=== PATIENT | female | born 1990 | race Caucasian/White ===

== ENCOUNTER 2018-05-02 07:02 | Emergency (ER) | payer OTHER ==
[2018-05-02 07:20] VITALS: BP 119/71; PULSE 89; TEMP 98.5; BMI 34.4
--- NOTE | 2018-05-02 08:52 | PDOC ---
History of Present Illness - General Chief Complaint: Vaginal Bleeding Stated Complaint: 11 WEEK /BLEEDING Time Seen by Provider: 05/02/18 08:20 History Source: Patient Exam Limitations: No Limitations - History of Present Illness Initial Comments: 05/02/18 08:44 27 yo F A3 11 weeks GA LMP 02/14/2018 with a history of sickle cell trait presents to the emergency department with vaginal bleeding that began at 2:30 am with the passing of "large blood clots" while in the ED. Per the patient, she was spotting over the last 3 days described as droplets. She was evaluated by her OBGYN physician Dr. Galo who performed an ultrasound yesterday that was reassuring. She states the heavy vaginal bleeding was painless. Currently, she has no symptomatic complaint. She miscarried before the 5 week gestational age in previous pregnancies with the most recent one 2 years ago. Recently, she was diagnosed with BV treated with metronidazole and recently treated for a yeast infection. Denies the following: trauma, fever, chills, nausea, vomiting, ears/nose/throat pain, headaches, chest pain, SOB, abdominal pain, dysuria, hematuria, diarrhea, hematochezia, and leg pain/swelling. Shx: None Meds: vitamins Allergies: NKDA Social: Denies tobacco, alcohol, and substance abuse. Past History - Past Medical History Allergies/Adverse Reactions: Allergies Allergy/AdvReac Type Severity Reaction Status Date / Time No Known Drug Allergies Allergy Verified 05/02/18 07:13 Home Medications: Ambulatory Orders NK [No Known Home Medication] 09/15/15 Anemia: No Asthma: No Cancer: No Cardiac Disorders: No CVA: No COPD: No CHF: No Dementia: No Diabetes: No GI Disorders: No Disorders: No HTN: No Hypercholesterolemia: No Liver Disease: No Seizures: No Thyroid Disease: No - Reproductive History (#): 1 Para: 0 - Immunization History Immunization Up to Date: Yes - Suicide/Smoking/Psychosocial Hx Smoking Status: No Smoking History: Never smoked Number of Cigarettes Smoked Daily: 0 Information on smoking cessation initiated: No Hx Alcohol Use: No Drug/Substance Use Hx: No Substance Use Type: None Hx Substance Use Treatment: No Review of Systems - Review of Systems Able to Perform ROS?: Yes Is the patient limited Slovak proficient: No Constitutional: No: Chills, Diaphoresis, Fever, Weakness HEENTM: No: Eye Pain, Recent change in vision, Ear Pain, Nose Pain, Throat Pain , Mouth Pain Respiratory: No: Cough, Shortness of Breath, SOB with Exertion, Hemoptysis Cardiac (ROS): No: Chest Pain, Lightheadedness, Palpitations, Syncope, Chest Tightness ABD/GI: No: Constipated, Diarrhea, Nausea, Poor Appetite, Poor Fluid Intake, Rectal Bleeding, Vomiting, Indigestion, Abdominal cramping, Tarry Stools : No: Burning, Dysuria, Flank Pain, Hematuria, Urgency Musculoskeletal: No: Back Pain, Gout, Joint Pain, Neck Pain Integumentary: No: Bruising, Erythema, Flushing, Lesions, Pruritus, Rash Neurological: No: Headache, Numbness, Tingling, Tremors, Ataxia, Dizziness Psychiatric: No: Change in Appetite Endocrine: No: Unexplained Weight Gain Hematologic/Lymphatic: No: Anemia *Physical Exam - Vital Signs Last Vital Signs Temp Pulse Resp BP Pulse Ox 98.5 F 89 15 119/71 100 05/02/18 07:13 05/02/18 07:13 05/02/18 07:13 05/02/18 07:13 05/02/18 07:13 - Physical Exam General Appearance: Yes: Nourished, Appropriately Dressed. No: Apparent Distress HEENT: positive: EOMI, LEONEL, Normal Voice, Symmetrical, Pharynx Normal, Hearing Grossly Normal. negative: Pale Conjunctivae, Scleral Icterus (R), Scleral Icterus (L), Muffled/Hoarse voice, Pharyngeal Erythema, Tonsillar Exudate, Tonsillar Erythema, Nasal Congestion, Rhinorrhea, Sinus Tenderness, Excessive drooling Neck: positive: Trachea midline. negative: Tender, Lymphadenopathy (R), Lymphadenopathy (L), Tender lateral, Tender midline Respiratory/Chest: positive: Lungs Clear, Normal Breath Sounds. negative: Chest Tender, Respiratory Distress, Accessory Muscle Use, Crackles, Rales, Rhonchi, Stridor, Wheezing, Hyperresonant, Dullness Cardiovascular: positive: Regular Rhythm, Regular Rate, S1, S2. negative: Systolic Murmur Female Pelvic Exam: positive: vaginal bleeding, other (cervical os open with red blood in the vault.). negative: CMT Gastrointestinal/Abdominal: positive: Normal Bowel Sounds, Flat, Soft. negative : Tender, Distended, Guarding, Rebound, Tenderness, Hernia Lymphatic: negative: Adenopathy Musculoskeletal: positive: Normal Inspection. negative: CVA Tenderness, Vertebral Tenderness Extremity: positive: Normal Capillary Refill, Normal Inspection, Normal Range of Motion. negative: Tender, Swelling, Calf Tenderness Integumentary: positive: Normal Color, Dry, Warm Neurologic: positive: sound editor II-XII NML intact, Fully Oriented, Alert, Normal Mood/ Affect, Normal Response, Motor Strength 5/5. negative: EOM Palsy, Facial Droop , Sensory Deficit Moderate Sedation - Procedure Monitoring Vital Signs: Procedure Monitoring Vital Signs Temperature 98.5 F 05/02/18 07:13 Pulse Rate 89 05/02/18 07:13 Respiratory Rate 15 05/02/18 07:13 Blood Pressure 119/71 05/02/18 07:13 O2 Sat by Pulse Oximetry (%) 100 05/02/18 07:13 ED Treatment Course - LABORATORY CBC & Chemistry Diagram: 05/02/18 09:25 05/02/18 09:25 Medical Decision Making - Medical Decision Making 05/02/18 09:31 27 yo F A3 11 weeks GA LMP 02/14/2018 with a history of sickle cell trait presents to the emergency department with vaginal bleeding that began at 2:30 am with the passing of "large blood clots" while in the ED. Initial vitals: Initial Vital Signs Temp Pulse Resp BP Pulse Ox 98.5 F 89 15 119/71 100 05/02/18 07:13 05/02/18 07:13 05/02/18 07:13 05/02/18 07:13 05/02/18 07:13 Work up: ddx: ectopic vs inevitable vs threatened vs complete vs incomplete . Denies seeing products of conception. Given rhogam last month by Dr. Galo. will get cbc, cmp, type and screen, ua, urine culture, urine GC, and tvus. Laboratory Tests 05/02/18 05/02/18 05/02/18 09:25 09:25 09:25 WBC 10.3 H RBC 4.57 Hgb 12.5 Hct 36.7 MCV 80.3 MCH 27.3 MCHC 34.1 RDW 16.0 H Plt Count 229 MPV 8.1 Absolute Neuts (auto) 8.5 H Neutrophils % 82.0 D Lymphocytes % 10.4 D Monocytes % 6.8 Eosinophils % 0.5 Basophils % 0.3 Nucleated RBC % 0 Sodium 137 Potassium 4.1 Chloride 105 Carbon Dioxide 23 Anion Gap 10 BUN 8 Creatinine 0.6 Creat Clearance w eGFR > 60 Random Glucose 88 Calcium 8.6 Total Bilirubin 0.3 AST 9 L ALT 18 Alkaline Phosphatase 57 Total Protein 7.2 Albumin 3.6 Beta HCG, Quant 32196.1 Urine Color Urine Appearance Urine pH Ur Specific Era Urine Protein Urine Glucose (UA) Urine Ketones Urine Blood Urine Nitrite Urine Bilirubin Urine Urobilinogen Ur Leukocyte Esterase Urine WBC (Auto) Urine RBC (Auto) Ur Epithelial Cells Urine Mucus Blood Type A NEGATIVE Antibody Screen Positive Antibody Identification D Antigen Identification No Result Required. Unit Expiration Date [id number] 05/02/18 09:40 WBC RBC Hgb Hct MCV MCH MCHC RDW Plt Count MPV Absolute Neuts (auto) Neutrophils % Lymphocytes % Monocytes % Eosinophils % Basophils % Nucleated RBC % Sodium Potassium Chloride Carbon Dioxide Anion Gap BUN Creatinine Creat Clearance w eGFR Random Glucose Calcium Total Bilirubin AST ALT Alkaline Phosphatase Total Protein Albumin Beta HCG, Quant Urine Color Ltyellow Urine Appearance Clear Urine pH 5.0 Ur Specific Era 1.014 Urine Protein Negative Urine Glucose (UA) Negative Urine Ketones Negative Urine Blood 3+ H Urine Nitrite Negative Urine Bilirubin Negative Urine Urobilinogen Negative Ur Leukocyte Esterase Negative Urine WBC (Auto) 5 Urine RBC (Auto) 120 Ur Epithelial Cells Rare Urine Mucus Rare Blood Type Antibody Screen Antibody Identification Antigen Identification Unit Expiration Date patient had a positive antibody on labs. the rest of the labs were within normal limits. TVUS showed live intrauterine of 11 weeks 1 day with small subchorionic bleed. patient is hemodynamically stable. Dr. Galo was reached and he stated no further work up required and to have the patient follow up with him. I instructed the patient to see Dr. Galo today for follow up on cell free DNA to assess if further treatment is required. patient agreed to the plan and stated she would see him after discharge. patient was discharged without symptoms and was able to ambulate on her own volition. Dispo: Discharge *DC/Admit/Observation/Transfer Diagnosis at time of Disposition: Vaginal bleeding, First trimester - Discharge Dispostion Disposition: HOME Decision to Admit order: No - Referrals Referrals: Azucena Vitale [Primary Care Provider] - Hunter Covarrubias MD [Staff Physician] - - Patient Instructions Printed Discharge Instructions: DI for -- Discomforts and Remedies, DI for Vaginal Bleeding During , DI for Abdominal Pain -- Early Additional Instructions: You were seen in the emergency department for the evaluation of your vaginal bleeding. your ultrasound showed subchorionic bleeding with a reassuring heart rate. you were given 300 micrograms of rhogam. Please follow up with your OBGYN physician today for possible testing of cell DNA to determine immunological risk. please return to the emergency department if you have worsening symptoms or new concerning symptoms such as increased bleeding, feelings of passing out, and SOB and chest pain. thank you. - Post Discharge Activity Forms/Work/School Notes: Back to Work
[2018-05-02 09:42] LABS: BASO % 0.3 % (0-2.0); EOS % 0.5 % (0-4.5); HEMATOCRIT 36.7 % (32.4-45.2); HEMOGLOBIN 12.5 GM/dL (10.7-15.3); LYMPH % 10.4 % (8-40); MCH 27.3 pg (25.7-33.7); MCHC 34.1 g/dl (32.0-36.0); MEAN CELL VOLUME 80.3 fl (80-96); MEAN PLT VOLUME 8.1 fl (7.5-11.1); MONO % 6.8 % (3.8-10.2); PLATELET COUNT 229 K/MM3 (134-434); RBC 4.57 M/mm3 (3.60-5.2); WHITE BLOOD COUNT 10.3 K/mm3 (4.0-10.0)
[2018-05-02 10:07] LABS: ALBUMIN 3.6 g/dl (3.4-5.0); ALK PHOS 57 U/L (45-117); ANION GAP 10 MMOL/L (8-16); BILIRUBIN,TOTAL 0.3 mg/dL (0.2-1); BLOOD UREA NITROGEN 8 mg/dL (7-18); CALCIUM 8.6 mg/dL (8.5-10.1); CHLORIDE 105 mmol/L (98-107); CO2 23 mmol/L (21-32); CREATININE 0.6 mg/dL (0.55-1.3); GLUCOSE,RANDOM 88 mg/dL (74-106); POTASSIUM 4.1 mmol/L (3.5-5.1); SGOT/AST 9 U/L (15-37); SGPT/ALT 18 U/L (13-61); SODIUM 137 mmol/L (136-145); TOT PROT 7.2 g/dl (6.4-8.2)
[2018-05-02 10:17] LABS: URINE APPEARANCE CLEAR; URINE BILIRUBIN NEGATIVE (<2.0 mg/dL); URINE COLOR LTYELLOW; URINE GLUCOSE (UA) NEGATIVE (NEGATIVE); URINE KETONE NEGATIVE (NEGATIVE); URINE LEUK ESTERASE NEGATIVE (NEGATIVE); URINE NITRITE NEGATIVE (NEGATIVE); URINE PROTEIN NEGATIVE (NEGATIVE); URINE UROBILINOGEN NEGATIVE mg/dL (0.2-1.0)
--- NOTE | 2018-05-02 10:22 | PDOC ---
Attending Attestation - Medical Decision Making 05/02/18 12:09 Dr. Covarrubias was called at his office requesting a call back at this time Documentation prepared by Jam Ocampo, acting as regional medical director for Lei Marie MD, <Jam Ocampo - Last Filed: 05/02/18 12:08> - Resident Resident Name: Kelvin Mejia - ED Attending Attestation I have performed the following: I have examined & evaluated the patient, The case was reviewed & discussed with the resident, I agree w/resident's findings & plan, Exceptions are as noted - HPI HPI: 05/02/18 10:15 The patient is a year 27 old female, A3, 11 weeks , with a significant past medical history of sickle cell trait, who presents to the emergency department today complaining of increased vaginal bleeding since 2: 30am this morning. The patient states she has been spotting for the past 3 days with new onset of passing large blood clots today. Patient reports the vaginal bleeding is painless. Patient reports seeing her WE[employer]IST[employer] physician Dr. Galo yesterday, who performed an ultrasound which did not reveal any abnormalities. She denies any abdominal pain or cramping. She reprots her LMP . The patient denies chest pain, shortness of breath, headache and dizziness. Denies fever, chills, nausea, vomit, diarrhea and constipation. Denies dysuria, frequency, urgency and hematuria. Allergies: NKDA Social history: No reported Gymnastic Coach: Dr. Covarrubias - Physicial Exam PE: 05/02/18 10:22 "GENERAL: Awake, alert, and fully oriented, in no acute distress. HEAD: No signs of trauma EYES: PERRLA, EOMI, sclera anicteric, conjunctiva clear ENT: Auricles normal inspection, hearing grossly normal, nares patent, oropharynx clear without exudates. Moist mucosa NECK: Nontender, no stepoffs, Normal ROM, supple, no lymphadenopathy, JVD, or masses LUNGS: Breath sounds equal, clear to auscultation bilaterally. No wheezes, and no crackles HEART: Regular rate and rhythm, normal S1 and S2, no murmurs, rubs or gallops ABDOMEN: Soft, nontender, normoactive bowel sounds. No guarding, no rebound. No masses EXTREMITIES: Normal range of motion, no edema. No clubbing or cyanosis. No cords, erythema, or tenderness NEUROLOGICAL: Cranial nerves II through XII intact. 5/5 strength and sensation in all extremities, Normal speech, normal gait, normal cerebellar function SKIN: Warm, Dry, normal turgor, no rashes or lesions noted. : Blood in vault, os open, no CMT, no adnexal tenderness or masses - Medical Decision Making 05/02/18 10:22 27 F with vaginal bleeding, suspect spontaneous Ab. - Labs, T&S - TVUS 05/02/18 12:37 Labs wnl TVUS shows IUP @ 11 wks with normal FHR Pt's blood type is A negative - antibody screen positive Pt given Rhogam Pt does not know baby's father's blood type Case discussed with Dr. Covarrubias, who recommends pt f/u with him in clinic. Results discussed with pt. I told pt that she will need testing to determine blood type. Pt understands that because she is likely alloimunized, she is at high risk for miscarriage. Pt is well appearing, with normal vitals. Clinically stable for DC at this time. I discussed the physical exam findings, ancillary test results and final diagnoses with the patient. I answered all of the patient's questions. The patient was satisfied with the care received and felt comfortable with the discharge plan and treatment plan. The patient agrees to follow up with the primary care physician within 24-72 hours. <Lei Marie - Last Filed: 05/02/18 12:53>
[2018-05-02 10:28] LABS: EPI CELLS RARE /HPF (FEW); URINE MUCUS RARE
[2018-05-02] MEDS ORDERED: RHO(D) IMMUNE GLOBULIN 1,500 UNIT DISP.SYRIN IM ONE (12:24)
== END 2018-05-02 14:19 | disposition home or self-care (01) ==
LOC: JER 07:02
DX: O26.891 Other specified pregnancy related conditions, first trimester (principal); O20.8 Other hemorrhage in early pregnancy; O99.011 Anemia complicating pregnancy, first trimester; Z3A.11 11 weeks gestation of pregnancy
CPT/HCPCS: 36415; 76817-TC; 80053; 81003; 81015; 84702; 85025; 86850; 86870; 86900; 86901; 86902; 86999; 87086; 87491; 87591; 99283-25; J1561

== ENCOUNTER 2018-05-09 09:40 | Day surgery (SDC) | payer OTHER ==
[2018-05-08 16:59] VITALS: BMI 34.4
[~2018-05-09 09:40] MED LIST: LACTATED RINGERS SOLUTION 1,000 ML IV SCH; ONDANSETRON 4 MG/2 ML VIAL IVPUSH PRN
[2018-05-09] MEDS ORDERED: MIDAZOLAM HCL 2 MG/2 ML SINGLE DOSE VIAL ONE (10:10)
[2018-05-09] MEDS ORDERED: PROPOFOL 20 ML ONE (10:10)
[2018-05-09] MEDS ORDERED: SUCCINYLCHOLINE CHLORIDE 200 MG/10 ML VIAL ONE (10:10)
--- NOTE | 2018-05-09 11:17 | HP ---
History & Physical Update - Physical Physical: No Change - Assessment Assessment: No Change - Plan Plan: No Change (H&P reviwed from 05/08/18 no changes ,for suction D&C)
[2018-05-09] MEDS ORDERED: LIDOCAINE HCL/PF 2% SDV 5ML VIAL ONE (11:21)
[2018-05-09] MEDS ORDERED: DEXAMETHASONE SOD PHOSPHATE 4 MG/1 ML VIAL ONE (11:21)
[2018-05-09] MEDS ORDERED: ceFAZolin SODIUM 1 GM VIAL ONE (11:33)
[2018-05-09] MEDS ORDERED: ceFAZolin SODIUM 1 GM VIAL IVPB ONE (11:36)
[2018-05-09] MEDS ORDERED: IBUPROFEN 600 MG TABLET (FP) PO PRN (12:02)
[2018-05-09] MEDS ORDERED: oxyCODONE HCL 5 MG TABLET PO PRN (12:02)
[2018-05-09] MEDS ORDERED: IBUPROFEN 800 MG/8 ML IJ IVPB PRN (12:02)
[2018-05-09] MEDS ORDERED: ONDANSETRON 4 MG/2 ML VIAL IVPUSH PRN (12:02)
[2018-05-09] MEDS ORDERED: ELECTROLYTE-148 SOLN 1,000 ML IV SCH (12:15)
--- NOTE | 2018-05-09 12:19 | OP ---
DATE OF OPERATION: 05/09/2018 PREOPERATIVE DIAGNOSIS: Incomplete . POSTOPERATIVE DIAGNOSIS: Incomplete . PROCEDURE: Suction dilation and curettage. SURGEON: Hunter Covarrubias MD ANESTHESIA: General. ANESTHESIOLOGIST: Dr. Lubin ESTIMATED BLOOD LOSS: 100 mL. DESCRIPTION OF PROCEDURE: The patient was taken to the operating room under adequate general anesthesia in dorsal lithotomy position. Examination under anesthesia revealed external genitalia to be normal. Vagina moderate amount of blood seen in the vault. Cervix was slightly open. The uterus was enlarged, retroverted approximately 10- to 12-week size. Then with a weighted speculum in the vagina, anterior lip of the cervix was grasped with a single-tooth tenaculum. Then the cervix was easily dilated with Hegar dilators and then suction curette was inserted, and the contents was suctioned in its entirety. The patient tolerated the procedure well and left the OR in good condition. HUNTER COVARRUBIAS M.D. [id number]
[2018-05-09 13:48] VITALS: TEMP 97.9
[2018-05-09 15:24] VITALS: BP 104/68; PULSE 67
--- NOTE | 2018-05-10 17:15 | PATH ---
Surgical Pathology Report Patient Name: KATINA CARRILLO Med. Rec. #: [id number] /Age/Gender: 1990 (Age: 27) / F Account: [id number] Location: [facility] SURGICAL Taken: 05/09/2018 Received: 05/09/2018 Reported: 05/10/2018 Physicians: Hunter Covarrubias M.D. Specimen(s) Received ENDOMETRIAL CURETTINGS Clinical History Incomplete Final Diagnosis ENDOMETRIAL CURETTINGS, SUCTION DILATION AND CURETTAGE: GESTATIONAL ENDOMETRIUM, INFLAMED DECIDUA, RARE NECROTIC CHORIONIC VILLI AND TROPHOBLASTIC TISSUE CONSISTENT WITH PRODUCTS OF CONCEPTION. BENIGN ENDOCERVICAL MUCOSA WITH MICROGLANDULAR HYPERPLASIA AND SCANT CERVICAL SQUAMOUS MUCOSA. Electronically Signed Concepción Gutierrez M.D. Gross Description Received in formalin labeled "endometrial curettings," is an 11.5 x 7.4 x 1.0 cm aggregate of collins red soft tissue fragments. No definite villous tissue or somatic tissue is identified. The specimen is entirely submitted in a 20 cassettes. /05/09/2018 [facility]05/09/2018
== END 2018-05-09 17:30 | disposition home or self-care (01) ==
LOC: JASU-SURG 09:40
PROVIDERS: ATTEND Obstetrics & Gynecology
PROC: 10D17ZZ Extraction of Products of Conception, Retained, Via Natural or Artificial Opening (ICD-10-PCS; principal; 2018-05-09 11:00)
DX: O03.4 Incomplete spontaneous abortion without complication (principal)
CPT/HCPCS: 88305-TC; 94760

== ENCOUNTER 2019-03-10 16:02 | Emergency (ER) | payer OTHER ==
[2019-03-10 16:11] VITALS: BMI 28.7
--- NOTE | 2019-03-10 17:07 | PDOC ---
History of Present Illness - General Chief Complaint: Vaginal Bleeding Stated Complaint: VAGINAL BLEEDING Time Seen by Provider: 03/10/19 17:07 - History of Present Illness Initial Comments: HPI: 28yo F G(6?)P0A(5?) currently ten weeks with PMH of PCOS and sickle cell trait presenting with vaginal bleeding. Patient states she has had vaginal spotting for several weeks with known subchorionic bleed for this shown on ultrasound. Also reports confirmed IUP for this , known Rh negative status, and Rhogam shot about two weeks ago. Yesterday, she noticed a bulging from her vagina such that she called the on-call provider and was instructed to push the bulge back in. Today, about two hours ago, patient noticed the bulging yet again and pushed it back in, but subsequently had significant bleeding such that she sat on the toilet for "a long time." Reports constipation for the past three days such that she took miralax and prune juice. Had a bowel movement today. Denies pain, weakness, or syncope. No fever or chills. regulatory auditor: Dr. Covarrubias ROS: Constitutional: no fever, no chills HEENT: no throat pain, no dysphagia Cardiovascular: no chest pain, no palpitations Respiratory: no cough, no shortness of breath Gastrointestinal: no abdominal pain, no vomiting Genitourinary: no dysuria, +vaginal bleeding Musculoskeletal: no myalgia, no arthralgia Skin: no rash, no itching Neurologic: no syncope, no weakness PE: General: Awake, alert, and fully oriented, in no acute distress Head: No signs of trauma Eyes: EOMI, sclera anicteric ENT: Moist mucus membranes Neck: Normal ROM, supple Lungs: Lungs clear, Normal breath sounds Cardio: Regular rhythm, S1 and S2 present Abdomen: Soft, nontender. No guarding, no rebound, no masses Extremities: Normal range of motion, Distal pulses present SKIN: Warm, Dry, normal turgor Neurologic: Cranial nerves II through XII grossly intact. Normal speech Pelvic: External genitalia without erythema, exudate or discharge. Vaginal vault is with small amount of blood. No clots or tissue seen on exam. Cervix is of normal color without lesion. No prolapse observed. No cervical motion tenderness is seen. No masses are palpated. The adnexa are without masses or tenderness. ED Course/MDM: DDX including but not limited to ectopic vs inevitable vs threatened vs complete vs incomplete Labs TVUS Rhogam 03/10/19 17:07 This patient was sent to the ER by Dr. Riddle, tube backer contact person for Dr. Covarrubias. Per call sheet: "~10 weeks . Possible uterine prolapse with bleeding. Dr. Riddle [phone]" 03/10/19 17:36 CBC WBC 10.8 K/mm3 (4.0-10.0) H 03/10/19 18:10 RBC 4.99 M/mm3 (3.60-5.2) 03/10/19 18:10 Hgb 12.7 GM/dL (10.7-15.3) 03/10/19 18:10 Hct 37.4 % (32.4-45.2) 03/10/19 18:10 MCV 74.9 fl (80-96) L 03/10/19 18:10 MCH 25.4 pg (25.7-33.7) L 03/10/19 18:10 MCHC 33.9 g/dl (32.0-36.0) 03/10/19 18:10 RDW 16.8 % (11.6-15.6) H 03/10/19 18:10 Plt Count 273 K/MM3 (134-434) 03/10/19 18:10 MPV 7.9 fl (7.5-11.1) 03/10/19 18:10 Absolute Neuts (auto) 8.5 K/mm3 (1.5-8.0) H 03/10/19 18:10 Neutrophils % 79.3 % (42.8-82.8) 03/10/19 18:10 Lymphocytes % 13.3 % (8-40) D 03/10/19 18:10 Monocytes % 6.8 % (3.8-10.2) 03/10/19 18:10 Eosinophils % 0.4 % (0-4.5) 03/10/19 18:10 Basophils % 0.2 % (0-2.0) 03/10/19 18:10 Nucleated RBC % 1 % (0-0) H 03/10/19 18:10 Mild leukocytosis Hgb normal Pending chemistries Patient at 03/10/19 18:47 CMP Sodium 136 mmol/L (136-145) 03/10/19 18:10 Potassium 3.8 mmol/L (3.5-5.1) 03/10/19 18:10 Chloride 104 mmol/L (98-107) 03/10/19 18:10 Carbon Dioxide 23 mmol/L (21-32) 03/10/19 18:10 Anion Gap 9 MMOL/L (8-16) 03/10/19 18:10 BUN 5.7 mg/dL (7-18) L 03/10/19 18:10 Creatinine 0.6 mg/dL (0.55-1.3) 03/10/19 18:10 Est GFR (CKD-EPI)AfAm 141.76 03/10/19 18:10 Est GFR (CKD-EPI)NonAf 122.31 03/10/19 18:10 Random Glucose 80 mg/dL (74-106) 03/10/19 18:10 Calcium 9.0 mg/dL (8.5-10.1) 03/10/19 18:10 Total Bilirubin 0.3 mg/dL (0.2-1) 03/10/19 18:10 AST 11 U/L (15-37) L 03/10/19 18:10 ALT 19 U/L (13-61) 03/10/19 18:10 Alkaline Phosphatase 61 U/L (45-117) 03/10/19 18:10 Total Protein 7.6 g/dl (6.4-8.2) 03/10/19 18:10 Albumin 3.6 g/dl (3.4-5.0) 03/10/19 18:10 Beta HCG, Quant 69921.5 mIU/ml 03/10/19 18:10 Electrolytes unremarkable US, as read by imaging contact person: "TECHNIQUE: Real-time imaging of the was performed with both transabdominal and transvaginal technique. Less than 14 weeks . COMPARISON: None available. FINDINGS: A single intrauterine gestation is present, with gestational sac, pole, and yolk sac visible. There is positive cardiac activity at a rate of 163 bpm.The estimated age is 11 weeks and 0 days. anatomy, placenta, and amniotic fluid volume are not evaluated at this early gestational age. There is no evidence of subchorionic hemorrhage. Cervix is closed with a length of 3.7 cm. Incidental note is made about 2.1 cm fibroid. Right Ovary Measurement: 3.9 x 2.3 x 2.7cm Right Ovarian Lesion: Incidental note is made of a 1.6 cm follicle. Left Ovary Measurement: 3.7 x 1.9 x 2.6 cm Left Ovarian Lesion: None. Normal arterial and venous flow is seen in both ovaries. No evidence of adnexal mass or free fluid. IMPRESSION: Single viable intrauterine gestation with positive cardiac activity. The estimated age is 11 weeks and 0 days" 03/10/19 19:[address] Riddle. Patient is safe for discharge. Patient to call office on Tuesday for follow up, hopefully on Tuesday. Return precautions Rhogam shot To be Discharged 03/10/19 20:00 Past History - Past Medical History Allergies/Adverse Reactions: Allergies Allergy/AdvReac Type Severity Reaction Status Date / Time No Known Drug Allergies Allergy Verified 03/10/19 16:08 Home Medications: Ambulatory Orders Metformin HCl [Glucophage] 500 mg PO DAILY 03/10/19 Anemia: No Asthma: No Cancer: No Cardiac Disorders: No CVA: No COPD: No CHF: No Dementia: No Diabetes: No GI Disorders: No Disorders: No HTN: No Hypercholesterolemia: No Liver Disease: No Seizures: No Thyroid Disease: No - Reproductive History (#): 1 Para: 0 - Immunization History Immunization Up to Date: Yes - Psycho Social/Smoking Cessation Hx Smoking Status: No Smoking History: Never smoked Number of Cigarettes Smoked Daily: 0 Hx Alcohol Use: No Drug/Substance Use Hx: No Substance Use Type: None Hx Substance Use Treatment: No *Physical Exam - Vital Signs Last Vital Signs Temp Pulse Resp BP Pulse Ox 98.2 F 79 15 120/73 99 03/10/19 16:10 03/10/19 16:10 03/10/19 16:10 03/10/19 16:10 03/10/19 16:10 ED Treatment Course - LABORATORY CBC & Chemistry Diagram: 03/10/19 18:10 03/10/19 18:10 Discharge - Discharge Information Problems reviewed: Yes Clinical Impression/Diagnosis: Threatened Condition: Stable Disposition: HOME - Follow up/Referral Referrals: Hunter Covarrubias MD [Primary Care Provider] - - Patient Discharge Instructions Patient Printed Discharge Instructions: DI for Threatened Additional Instructions: You were seen in the Emergency Department for vaginal bleeding. Blood work was within normal limits. The ultrasound report was reassuring. You were given Rhogam. Pelvic rest is recommended until your doctor says otherwise. Follow-up with your tube backer. Call on Tuesday for an appointment, likely on Tuesday. Your workup is not complete until you do so. Return to the Emergency Department if you experience: -heavy bleeding (more than two pads per hour for two hours) -severe pain -lightheadedness -shortness of breath -high fever -any other concerning symptoms - Post Discharge Activity
[2019-03-10] MEDS ORDERED: RHO(D) IMMUNE GLOBULIN 1,500 UNIT DISP.SYRIN IM ONE (17:30)
[2019-03-10] MEDS ORDERED: SODIUM CHLORIDE 1,000 ML IV STA (18:10)
--- NOTE | 2019-03-10 18:29 | PDOC ---
Documentation entered by Jam Ocampo SCRIBE, acting as scribe for Meron Campos MD. Meron Campos MD: This documentation has been prepared by the Damaris joseph Xhesika, SCRIBE, under my direction and personally reviewed by me in its entirety. I confirm that the documentation accurately reflects all work, treatment, procedures, and medical decision making performed by me. Attending Attestation - Resident Resident Name: Graciela Rodrigez - ED Attending Attestation I have performed the following: I have examined & evaluated the patient, The case was reviewed & discussed with the resident, I agree w/resident's findings & plan, Exceptions are as noted - HPI HPI: 03/10/19 18:19 The patient is a 28 year old female, A5, currently 10 weeks , with a significant PMH of sickle cell trait, PCOS, subchorionic bleed and prolapse who presents to the emergency department for several weeks of vaginal bleeding. Pt saw her O[facility]/[employer] [employer] [facility] 2 weeks ago, confirmed IUP for this and had Rhogam shot. Patient noticed a bulge in her vagina yesterday, called her PCP and was told to push it back in. pt states she noticed the bulge again today, pushed it back in and endorsed more vaginal bleeding. Pt reports endorsing 3 days of constipation, took miralax and had a BM today. The patient denies fever, chills , cough, nausea, vomiting, diarrhea. Denies dysuria, frequency, urgency. 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 Covarrubias - Physicial Exam PE: 03/10/19 18:19 GENERAL: The patient is in no acute distress ,well appearing. HEAD: Normal EYES: PERRLA, EOMI, conjunctiva clear. ENT: Ears normal, nares patent, oropharynx clear without exudates. Moist mucous membranes. LUNGS: Breath sounds equal, clear to auscultation bilaterally. No wheezes, and no crackles. HEART:Regular rate and rhythm, normal S1 and S2 without murmur, rub or gallop. ABDOMEN: Soft, nontender NEUROLOGICAL: Cranial nerves II through XII grossly intact. Normal speech. No focal neurological deficits. SKIN: Warm, Dry, normal turgor, no rashes or lesions noted. 03/10/19 18:26 - Medical Decision Making 03/10/19 18:28 28-year-old female presenting to the emergency department with vaginal bleeding She is currently approximately 10 weeks , known subchorionic hemorrhage Patient is also Rh- We will do lab Transvaginal ultrasound UA Type and screen [facility] [employer] consult 03/10/19 19:35 U/S: Patient Name: KATINA CARRILLO THIS IS A PRELIMINARY REPORT FROM [facility] DATE OF SERVICE: 2019-03-10 18:48:22 IMAGES: 56 EXAM: US OB less than 14 weeks HISTORY: Vaginal bleeding TECHNIQUE: Real-time imaging of the was performed with both transabdominal and transvaginal technique. Less than 14 weeks . COMPARISON: None available. FINDINGS: A single intrauterine gestation is present, with gestational sac, pole, and yolk sac visible. There is positive cardiac activity at a rate of 163 bpm. The estimated age is 11 weeks and 0 days. anatomy, placenta, and amniotic fluid volume are not evaluated at this early gestational age. There is no evidence of subchorionic hemorrhage. Cervix is closed with a length of 3.7 cm. Incidental note is made about 2.1 cm fibroid. Right Ovary Measurement: 3.9 x 2.3 x 2.7cm Right Ovarian Lesion: Incidental note is made of a 1.6 cm follicle. Left Ovary Measurement: 3.7 x 1.9 x 2.6 cm Left Ovarian Lesion: None. Normal arterial and venous flow is seen in both ovaries. No evidence of adnexal mass or free fluid. IMPRESSION: Single viable intrauterine gestation with positive cardiac activity. The estimated age is 11 weeks and 0 days 03/10/19 19:36 Laboratory Tests 03/10/19 03/10/19 03/10/19 18:10 18:10 18:10 WBC 10.8 H Hgb 12.7 Hct 37.4 Plt Count 273 INR 1.03 Urine Blood 1+ H Urine Nitrite Negative Urine Bilirubin Negative Ur Leukocyte Esterase Negative Urine WBC (Auto) 1 Urine RBC (Auto) [address] Venkatesh Parekh given Will discharge to home Clinical impression: threatened ab, repeat presentation
[2019-03-10 18:32] LABS: EPI CELLS 2.2 /HPF (0-5/HPF); HYALINE CASTS 4 /lpf (0-8); URINE APPEARANCE CLEAR; URINE BACTERIA 9.1 /hpf (NEGATIVE); URINE BILIRUBIN NEGATIVE (NEGATIVE); URINE COLOR YELLOW; URINE GLUCOSE (UA) NEGATIVE (NEGATIVE); URINE KETONE NEGATIVE (NEGATIVE); URINE LEUK ESTERASE NEGATIVE (NEGATIVE); URINE NITRITE NEGATIVE (NEGATIVE); URINE PROTEIN NEGATIVE (NEGATIVE); URINE RBC 1 /hpf (0-4); URINE UROBILINOGEN 0.2 mg/dL (0.2-1.0); URINE WBC 1 /hpf (0-5)
[2019-03-10 18:36] LABS: BASO % 0.2 % (0-2.0); EOS % 0.4 % (0-4.5); HEMATOCRIT 37.4 % (32.4-45.2); HEMOGLOBIN 12.7 GM/dL (10.7-15.3); INR 1.03 (0.83-1.09); LYMPH % 13.3 % (8-40); MCH 25.4 pg (25.7-33.7); MCHC 33.9 g/dl (32.0-36.0); MEAN CELL VOLUME 74.9 fl (80-96); MEAN PLT VOLUME 7.9 fl (7.5-11.1); MONO % 6.8 % (3.8-10.2); NEUT % 79.3 % (42.8-82.8); PLATELET COUNT 273 K/MM3 (134-434); PROTHROMBIN TIME (PATIENT) 12.1 SEC (9.7-13.0); RBC 4.99 M/mm3 (3.60-5.2); RDW 16.8 % (11.6-15.6); WHITE BLOOD COUNT 10.8 K/mm3 (4.0-10.0)
[2019-03-10 18:38] LABS: ACTIVATED PTT 30.1 SECONDS (25.2-36.5)
[2019-03-10 19:54] LABS: ALBUMIN 3.6 g/dl (3.4-5.0); BILIRUBIN,TOTAL 0.3 mg/dL (0.2-1); BLOOD UREA NITROGEN 5.7 mg/dL (7-18); CREATININE 0.6 mg/dL (0.55-1.3); POTASSIUM 3.8 mmol/L (3.5-5.1); TOT PROT 7.6 g/dl (6.4-8.2)
[2019-03-11 04:01] VITALS: BP 110/57; PULSE 90; TEMP 98.3
== END 2019-03-10 22:17 | disposition home or self-care (01) ==
LOC: JER 16:02 → SUPCPDRO 16:02 → JER 22:17
PROC: 3E0337Z Introduction of Electrolytic and Water Balance Substance into Peripheral Vein, Percutaneous Approach (ICD-10-PCS; principal; 2019-03-10)
PROC: 3E0234Z Introduction of Serum, Toxoid and Vaccine into Muscle, Percutaneous Approach (ICD-10-PCS; 2019-03-10)
DX: O26.891 Other specified pregnancy related conditions, first trimester (principal); O20.0 Threatened abortion; O36.0910 Maternal care for other rhesus isoimmunization, first trimester, not applicable or unspecified; Z3A.11 11 weeks gestation of pregnancy
CPT/HCPCS: 36415; 76801-TC; 80053; 81003; 84702; 85025; 85610; 85730; 86850; 86870; 86900; 86901; 86902; 86999; 87086; 99284-25; J1561; J7030